=== PATIENT | male | born 1975 | race Caucasian/White ===

== ENCOUNTER → 2022-11-16 | Outpatient (CLI) | payer BC ==
--- NOTE | 2022-11-16 17:57 | XR ---
EXAMINATION TYPE: XR chest 2V DATE OF EXAM: 11/16/2022 5:03 PM COMPARISON: None TECHNIQUE: XR chest 2V Frontal and lateral views of the chest. CLINICAL INDICATION:Male, 47 years old with history of [id number] nicotine dependence.; FINDINGS: Lungs/Pleura: There is no evidence of pleural effusion, focal consolidation, or pneumothorax. Pulmonary vascularity: Unremarkable. Heart/mediastinum: Cardiomediastinal silhouette is unremarkable. Musculoskeletal: No acute osseous pathology. IMPRESSION: No acute cardiopulmonary disease/process.
== END | disposition home or self-care (01) ==
LOC: RADXRYALE 16:44
PROVIDERS: ATTEND Physician Assistant Medical
DX: F17.200 Nicotine dependence, unspecified, uncomplicated (principal)
CPT/HCPCS: 71046

== ENCOUNTER → 2025-03-11 | Outpatient (CLI) | payer BC ==
--- NOTE | 2025-03-11 13:16 | CTL ---
EXAMINATION TYPE: CT Low Dose Lung DATE OF EXAM: 03/11/2025 10:00 AM COMPARISON: Radiograph 11/16/2022 CLINICAL INDICATION: Male, 49 years old with history of R07.9 CHEST PAIN, UNSPECIFIED, exposure to as bestos, History of tobacco use. Former smoker with 40 pack-year history TECHNIQUE: Low dose computed tomography scan was performed through the chest at 1 mm thick sections a nd reconstructed images in multiple planes at 1 mm and [address] DLP: 73 mGycm, CT CTDI: 2.26 mGy, Automated exposure control for dose reduction was used. CT DIAGNOSTIC QUALITY: Satisfactory FINDINGS: The heart is normal size without pericardial effusion. Scattered mild LAD and RCA coronary artery gilma cifications are present. Aorta normal caliber with very direct takeoff of the left vertebral artery directly from the aortic a rch. Tiny calcified AP window lymph node suggesting prior granulomatous disease. No thoracic lymphadenopat hy by CT size criteria. Lungs show no consolidation or pleural effusion. There is a 5 mm right midlung fissural pulmonary nodule, axial image 35, regarded as benign. No suspi cious pulmonary nodules are seen. Visualized upper abdomen shows no gross abnormality. Bones: No osseous destructive process. IMPRESSION: 1. Lung RADS 2, benign; a 5 mm fissural pulmonary nodule right midlung on baseline screening. No susp icious pulmonary nodules. 2. Scattered mild LAD and RCA coronary artery calcifications. CT LUNG RAD AND CT CHEST RECOMMENDATION: Lung-Rad 2 Benign Appearance or Behavior: Continue annual sc reening with LDCT in 12 months. S Modifier (other clinically significant findings): None [facility], , 03/11/2025 1:14 PM
--- NOTE | 2025-03-11 15:03 | CA ---
Exercise Stress Test Report Name: Amari Kunz Exam Date: 03/11/2025 10:02 Exam Location: [place] Stress Ht (in): 67 Wt (lb): 148 BSA: 1.78 Ordering Phys: Glen Panda DO Referring Phys: Mei Gage PAC Technologist: LINDSAY ADHIKARI Age: 49 Gender: M : 1975 Procedure CPT: Indications: R07.9 CHEST PAIN, UNSPECIFIED ICD-10 Codes: Patient History: Medications: ATORVASTATIN,,, Meds past 24 hrs: Pretest Chest Pain: STRESS TEST Yakov Protocol Exercise Duration (min:sec): 09:[address] Depressions (mm): Angina Score: Whitten Score: Resting HR (bpm): 55 Peak HR (bpm): 138 Resting BP (mmHg): 126 / 86 Peak BP (mmHg): 216 / 82 MPHR: 169 Target HR: 144 % MPHR: 82 METS: 10.3 Total Dose: Peak Dose: Atropine: Double Product: 65344 BP Response: Stress Termination: SOB,MAX EXERTION Stress Symptoms: SOB,LEG PAIN Stress Summary: ECG ANALYSIS Resting ECG: Stress ECG: CONCLUSIONS Reason for test: Chest discomfort dyslipidemia Good exercise capacity on a Yakov protocol 9 minutes Hypertensive response to exercise. Peak blood pressure 216/82 mmHg No clear-cut ECG evidence for ischemia or arrhythmia Dr. Du King MD (Electronically Signed) Final Date: 11 Mar 2025 15:00
== END | disposition home or self-care (01) ==
LOC: RADCTMAIN 09:20
PROVIDERS: ATTEND Family Medicine
DX: Z12.2 Encounter for screening for malignant neoplasm of respiratory organs (principal); R91.1 Solitary pulmonary nodule; E78.2 Mixed hyperlipidemia; R03.0 Elevated blood-pressure reading, without diagnosis of hypertension; I25.10 Atherosclerotic heart disease of native coronary artery without angina pectoris; E78.5 Hyperlipidemia, unspecified; Z82.49 Family history of ischemic heart disease and other diseases of the circulatory system; Z87.891 Personal history of nicotine dependence
CPT/HCPCS: 71271; 93017

== ENCOUNTER → 2025-05-15 | Outpatient (CLI) | payer BC ==
--- NOTE | 2025-05-16 11:35 | CA ---
Transthoracic Echo Report Name: Amari Kunz Age: 50 Gender: M : 1975 Exam Date: 05/15/2025 17:27 Exam Location: [place] Echo Ht (in): 67 Wt (lb): 147 Ordering Physician: Glen Panda DO Attending/Referring Phys: Mei Gage PAC [employer] Driver Martha Mar RDCS Procedure CPT: Indications: E78.2 MIXED HYPERLIPIDEMIA Cardiac Hx: Technical Quality: Good Contrast 1: Total Dose (mL): Contrast 2: Total Dose (mL): MEASUREMENTS (Male / Female) Normal Values 2D ECHO LV Diastolic Diameter PLAX 4.2 cm 4.2 - 5.9 / 3.9 - 5.3 cm LV Systolic Diameter PLAX 3.0 cm IVS Diastolic Thickness 0.6 cm 0.6 - 1.0 / 0.6 - 0.9 cm LVPW Diastolic Thickness 0.9 cm 0.6 - 1.0 / 0.6 - 0.9 cm LV Relative Wall Thickness 0.4 RV Internal Dim ED PLAX 3.0 cm LA Systolic Diameter LX 3.0 cm 3.0 - 4.0 / 2.7 - 3.8 cm LV Diastolic Volume MOD BP 104.3 cm??? 67 - 155 / 56 - 104 cm??? LV Systolic Volume MOD BP 34.7 cm??? 22 - 58 / 19 - 49 cm??? LV Ejection Fraction MOD BP 66.7 % >= 55 % LV Cardiac Index MOD BP 2778.4 cm???/min???m??? LV Diastolic Volume MOD 4C 109.6 cm??? LV Systolic Volume MOD 4C 37.9 cm??? LV Ejection Fraction MOD 4C 65.4 % LV Cardiac Index MOD 4C 2862.3 cm???/min???m??? LV Diastolic Length 4C 7.9 cm LV Systolic Length 4C 6.1 cm LV Diastolic Volume MOD 2C 91.8 cm??? LV Systolic Volume MOD 2C 28.0 cm??? LV Ejection Fraction MOD 2C 69.5 % LV Cardiac Index MOD 2C 2546.0 cm???/min???m??? LV Diastolic Length 2C 8.6 cm LV Systolic Length 2C 7.0 cm LA Volume 39.0 cm??? 18 - 58 / 22 - 52 cm??? LA Volume Index 21.9 cm???/m??? 16 - 28 cm???/m??? M-MODE Aortic Root Diameter MM 2.8 cm AV Cusp Separation MM 2.0 cm DOPPLER AV Peak Velocity 140.7 cm/s AV Peak Gradient 7.9 mmHg AV Mean Velocity 88.2 cm/s AV Mean Gradient 3.5 mmHg AV Velocity Time Integral 24.2 cm MV Area PHT 3.0 cm??? Mitral E Point Velocity 85.9 cm/s Mitral A Point Velocity 76.5 cm/s Mitral E to A Ratio 1.1 MV Deceleration Time 253.6 ms FINDINGS Left Ventricle Left ventricular ejection fraction is estimated at 55-60 %. Left ventricular cavity size normal. Left ventricular wall thickness normal. Normal left ventricular wall motion. Right Ventricle Normal right ventricular size. Unable to estimate the right ventricular systolic pressure. Right Atrium Normal right atrial size. No right atrial thrombus or mass seen. Left Atrium Normal left atrial size. No left atrial thrombus or mass present. Mitral Valve Structurally normal mitral valve. No mitral stenosis, regurgitation or prolapse. Aortic Valve Trileaflet aortic valve. No aortic valve stenosis or regurgitation. Tricuspid Valve Structurally normal tricuspid valve. No tricuspid stenosis, regurgitation or prolapse. Pulmonic Valve Structurally normal pulmonic valve. Mild pulmonic regurgitation. Pericardium No pericardial effusion. Aorta Normal size aortic root and proximal ascending aorta. CONCLUSIONS LVEF 55 to 60% No obvious regional wall motion abnormality Normal RV size and systolic function No significant valvular dysfunction Previewed by: Dr Gee Beauchamp (Electronically Signed) Final Date: 16 May 2025 11:34
== END | disposition home or self-care (01) ==
LOC: RADECHMAIN 17:24
PROVIDERS: ATTEND Family Medicine
DX: I50.20 Unspecified systolic (congestive) heart failure (principal); E78.2 Mixed hyperlipidemia
CPT/HCPCS: 93306